=== PATIENT | female | born 2000 | race Two or more races ===

== ENCOUNTER 2025-02-15 18:10 | Emergency (ER) | payer OTHER ==
[~2025-02-15] VITALS: Ht 167.6 cm; Wt 81.6 kg
[2025-02-15] MEDS ORDERED: PRENATAL 19 CH1 EACH PO (18:30)
[2025-02-15 20:16] LABS: PH,URINE 7.5 (5.0-8.0); URINE APPEARANCE Clear; URINE BILIRRUBIN Negative (NEGATIVE); URINE BLOOD Negative; URINE COLOR Yellow; URINE GLUCOSE Negative (NEGATIVE); URINE KETONE Negative (NEGATIVE); URINE LEUKOCYTE Negative; URINE NITRATE Negative; URINE PROTEIN Negative (NEGATIVE); URINE UROBILINOGEN 0.2 E.U./dl
[2025-02-15 20:19] LABS: URINE BACTERIA 133.3 uL (0.0-1933); URINE RBC 4.2 uL (0.0-20.8); URINE WBC 8.3 uL (0.0-23.2)
== END 2025-02-15 20:40 | disposition home or self-care (01) ==
LOC: ER 18:26
PROVIDERS: General Practice
DX: O99.891 Other specified diseases and conditions complicating pregnancy (principal); Z3A.01 Less than 8 weeks gestation of pregnancy; R35.0 Frequency of micturition

== ENCOUNTER 2025-02-18 09:32 | Emergency (ER) | payer OTHER ==
[~2025-02-18] VITALS: Ht 167.6 cm; Wt 83.0 kg
[~2025-02-18 09:32] MED LIST: PRENATAL 19 CH1 EACH PO
[2025-02-18] MEDS ORDERED: PEPCID AC20 MG PO (10:48)
[2025-02-18] MEDS ORDERED: AMOX1TAB5 PO (10:48)
[2025-02-18] MEDS ORDERED: DIPHENHYDRAMINE HCL 50 MG/ML VIAL 1ML IM ONE (11:00)
[2025-02-18] MEDS ORDERED: DIPHENHYDRAMINE HCL 50 MG/ML VIAL 1ML ONE (11:39)
== END 2025-02-18 12:24 | disposition expired ==
LOC: ER 09:32
DX: Z34.90 Encounter for supervision of normal pregnancy, unspecified, unspecified trimester (principal); Z3A.26 26 weeks gestation of pregnancy; L03.116 Cellulitis of left lower limb